=== PATIENT | male | born 1950 | race Caucasian/White ===

== ENCOUNTER → 2021-06-15 | Outpatient (CLI) | payer MEDICARE ==
[~2021-06-15] VITALS: Ht 177.8 cm; Wt 91.2 kg
[~2021-06-15] MED LIST: AMARYL4 MG PO; ASPIRIN E.C. 8181 MG PO; COREG 25MG25 MG/TAB PO; DESYREL 50MG50 MG PO; GLUCOPHAGE500 MG/TAB PO; INSULIN N (N100 U/ML SQ; IRON TABLETS325 MG PO; LEVOXYL0.05 MG PO; LIPITOR 10MG10 MG PO; NEURONTIN300 MG/CAP PO; NORVASC 5MG5 MG/TAB PO; PHARMASSURE ZIN50 MG PO; VITAMIN B12 1541 TAB PO; WELLBUTRIN SR100 M1 PO; ZESTRIL 10MG10 MG PO; lipoflavonoid PO
[2021-06-15 09:40] VITALS: BP 174/94; PULSE 65; TEMP 98.2
[2021-06-15 10:34] VITALS: BP 175/90; PULSE 68
== END ==
LOC: COL.RAD 09:00
DX: M54.12 Radiculopathy, cervical region (principal)
CPT/HCPCS: J1100

== ENCOUNTER → 2021-07-08 | Outpatient (CLI) | payer MEDICARE, OTHER ==
[~2021-07-08] VITALS: Ht 177.8 cm; Wt 91.0 kg
[2021-07-08 09:56] VITALS: BP 155/92; PULSE 71; TEMP 97.6
[2021-07-08 10:45] VITALS: BP 155/97; PULSE 70
== END ==
LOC: COL.RAD 09:00
DX: M48.02 Spinal stenosis, cervical region (principal)
CPT/HCPCS: J1100